=== PATIENT | male | born 1985 | race Caucasian/White ===

== ENCOUNTER 2018-06-16 18:14 | Emergency (ER) | payer OTHER ==
--- NOTE | 2018-06-16 18:26 | EDPHY ---
H & P Stated Complaint: C/O RT SHOULDER PAIN AFTER SLIDING INTO BASE Time Seen by Provider: 06/16/18 18:17 HPI/ROS: 33-year-old male presents complaining of right shoulder and right mid humerus pain after sliding into base with his arm extended while playing baseball. No numbness or tingling in hand, forearm, lateral upper arm. Review of systems As per HPI General no fever no chills no weakness HEENT no eye pain no eye discharge. No eye redness, no sore throat Respiratory no cough, no shortness of breath Cardiac no chest pain, no peripheral edema GI no abdominal pain, no diarrhea, no constipation, no nausea, no vomiting no flank pain, no hematuria, no dysuria Musculoskeletal positive myalgias, positive joint pain Heme no easy bruising, no easy bleeding Endo no polyuria, no polydipsia Skin no rashes, no pruritus Neuro no syncope, no dizziness, no headaches Source: Patient Exam Limitations: No limitations - Personal History Current Tetanus Diphtheria and Acellular Pertussis (TDAP): Yes - Medical/Surgical History Hx Asthma: No Hx Chronic Respiratory Disease: No Hx Diabetes: No Hx Cardiac Disease: No Hx Renal Disease: No Hx Cirrhosis: No Hx Alcoholism: No Hx HIV/AIDS: No Hx Splenectomy or Spleen Trauma: No Other PMH: TESTICULAR CA/ AAA/PNE - Family History Significant Family History: No pertinent family hx - Social History Smoking Status: Never smoked Alcohol Use: None Drug Use: None - Physical Exam Exam: 33-year-old male alert and oriented in moderate distress secondary to right arm pain Atraumatic normocephalic Extraocular muscles intact Neck no midline tenderness, supple, no JVD Lungs clear to auscultation bilaterally Heart regular rate and rhythm Abdomen nondistended NABS soft lower ext no cce upper ext right shoulder, no swelling, no deformity, no evidence of dislocation , no ecchymoses very limited rom , unable to abduct or externally rotate without pain, shoulder most comfortable with arm held across abdomen in with internal rotation of shoulder from at elbow, wrist, digits, good distal pulses, good cap refill in fingers most ttp at lateral deltoid and along bicipital groove Constitutional: Initial Vital Signs Temperature (C) 36.6 C 06/16/18 18:19 Heart Rate 78 06/16/18 18:19 Respiratory Rate 18 06/16/18 18:19 Blood Pressure 123/86 H 06/16/18 18:19 O2 Sat (%) 97 06/16/18 18:19 O2 Delivery Mode Room Air Allergies/Adverse Reactions: No Known Allergies Allergy (Unverified 06/16/18 18:19) Home Medications: Medication Instructions Recorded Ibuprofen 800 mg PO Q8 PRN 7 Days #21 tablet 06/16/18 Medical Decision Making - Diagnostics Imaging Results: Imaging Impressions Shoulder X-Ray 06/16/18 18:20 Impression: 1. Normal Right shoulder series. 2. Normal right humerus series. Humerus X-Ray 06/16/18 18:21 Impression: 1. Normal Right shoulder series. 2. Normal right humerus series. ED Course/Re-evaluation: Patient seen and evaluated for right shoulder, right arm injury after sliding into base while playing baseball. Exam without deformity however patient does have a significant amount of pain. X-rays of right shoulder and right humerus negative Impression Right shoulder sprain Possible rotator cuff injury Plan Sling Take-home pack Percocet Prescription for ibuprofen Advised to follow up with his primary care at the [facility] to get orthopedic referral and possible MRI Differential Diagnosis: Differential diagnosis considered but not limited to: Shoulder dislocation, AC separation, shoulder sprain, shoulder strain, humerus fracture, humerus contusion, shoulder contusion - Data Points Medications Given: Discontinued Medications Oxycodone/Acetaminophen (Percocet 5/325) 2 tab PO EDNOW ONE Stop: 06/16/18 18:30 Last Admin: 06/16/18 18:43 Dose: 2 tab Oxycodone/Acetaminophen (Percocet 5/325mg Prepack#4) 1 btl TAKEHOME EDNOW ONE Stop: 06/16/18 19:18 Last Admin: 06/16/18 19:28 Dose: 1 btl Departure - Departure Disposition: Home, Routine, Self-Care Clinical Impression: Sprain of right shoulder Condition: Good Instructions: Rotator Cuff Injury (ED), Shoulder Sprain (ED) Additional Instructions: Follow up with your Primary at the [facility] to get an orthopedic referral and possible MRI if not improving. Referrals: [facility], [Other] - As per Instructions Prescriptions: Ibuprofen 800 mg PO Q8 PRN 7 Days #21 tablet PRN Reason: Pain, Moderate
[2018-06-16] MEDS ORDERED: OXYCODONE/APAP 5/325 TAB PO ONE (18:29)
[2018-06-16] MEDS ORDERED: OXYCODONE/APAP 5/325MG PREPACK#4 BTL TAKEHOME ONE (19:17)
[2018-06-16 19:32] VITALS: BP 122/68
== END 2018-06-16 19:30 | disposition home or self-care (01) ==
LOC: CED 18:14
DX: S43.401A Unspecified sprain of right shoulder joint, initial encounter (principal); X50.9XXA Other and unspecified overexertion or strenuous movements or postures, initial encounter; Y93.64 Activity, baseball
CPT/HCPCS: 73030-PO; 73060-PO; 99283-ER; A4565-ER